=== PATIENT | male | born 1985 | race Caucasian/White ===

== ENCOUNTER 2019-05-28 00:47 | Emergency (ER) | payer OTHER, SELFPAY ==
[2019-05-28] VITALS (8 sets, daily range): BP systolic 127–143; BP diastolic 83–99; PULSE 78–100; RESP 15–25; TEMP 36.6; O2SAT 95–97; BMI 35.4
--- NOTE | 2019-05-28 01:11 | XRR_ITS ---
PROCEDURE INFORMATION: Exam: XR Chest, 1 View Exam date and time: 05/28/2019 1:55 AM Age: 34 years old Clinical indication: Other: Syncope; Chest pain; Type not specified TECHNIQUE: Imaging protocol: XR of the chest Views: 1 view. COMPARISON: CR Chest 2 views* [id number] 2017-02-20 04:56 FINDINGS: Lungs: Unremarkable. No consolidation. Pleural space: Unremarkable. No pleural effusion. No pneumothorax. Heart/Mediastinum: Unremarkable. No cardiomegaly. Bones/joints: Unremarkable. XR/XR chest 1V portable [id number] IMPRESSION: No acute findings.
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
--- NOTE | 2019-05-28 01:13 | ECG_ITS ---
Measurements Intervals [place] Rate: 86 P: 31 GA: 146 QRS: 49 QRSD: 92 T: 15 QT: 369 QTc: 444 SINUS RHYTHM NONSPECIFIC T-WAVE ABNORMALITY Compared to ECG 11/23/2014 08:46:08 T-wave abnormality now present Electronically Signed On 05-28-2019 13:28:28 PHP DEVELOPER by Lorie Farah M.D. [id number]
[2019-05-28 01:25] LABS: Basophils # 0.1 10^3/uL (0.0-0.1); Basophils % 0.6 %; Eosinophils # 0.4 10^3/uL (0.0-0.8); Eosinophils % 3.8 %; Hematocrit 45.4 % (42.0-52.0); Hemoglobin 15.2 g/dL (11.7-16.6); Lymphocytes # 3.2 10^3/uL (0.8-4.8); Lymphocytes % 29.6 %; Mean Corpuscular HGB Conc 33.5 g/dL (30.0-36.0); Mean Corpuscular Hemoglobin 28.1 pg (28.0-34.0); Mean Corpuscular Volume 84.1 fL (80-94); Mean Platelet Volume 10.4 fL (7.4-10.4); Monocytes # 1.1 10^3/uL (0.2-0.9); Monocytes % 10.3 %; Neutrophils % 55.3 %; Nucleated Red Blood Cells % 0 %; Platelet Count 453 10^3/cmm (130-400); Red Cell Distribution Width 12.1 % (12.1-15.1); White Blood Count 10.9 10^3/uL (4.0-10.0)
[2019-05-28 01:38] LABS: Alanine Aminotransferase 27 U/L (0-41); Albumin Level 4.4 g/dL (3.5-5.2); Alkaline Phosphatase 165 IU/L (40-130); Anion Gap 18.4 (5-19); Aspartate Amino Transferase 14 U/L (0-40); Blood Urea Nitrogen 20 mg/dL (6-20); Calcium 10.5 mg/Dl (8.6-10.0); Carbon Dioxide 23 mmol/L (22-29); Chloride 97 mmol/L (98-107); Creatine Phosphokinase 74 U/L (39-308); Globulin 4.2 g/dL (1.3-4.6); Glucose 140 mg/dL (74-109); Magnesium 2.2 mg/dL (1.7-2.3); Phosphorus 3.9 mg/dL (2.5-4.5); Potassium 3.4 mmol/L (3.5-5.1); Sodium 135 mmol/L (136-145); Total Bilirubin 0.3 mg/dL (0.15-1.2); Total Protein 8.6 g/dL (6.6-8.7)
[2019-05-28 01:41] LABS: Troponin(5th) Baseline 12 ng/mL (0-15)
[2019-05-28] MEDS: sodium chloride 0.9% 1,000 ML 999 ML IV (03:04)
[2019-05-28 03:07] LABS: Troponin 5 2HR 12.43 ng/mL (0-15)
[2019-05-28 03:08] LABS: Troponin 5 2HR Delta 0.43 ABS# (0-10)
[2019-05-28] MEDS: ketorolac 30 mg/mL INJ IVP (03:22)
== END 2019-05-28 04:04 | disposition home or self-care (01) ==
PROVIDERS: Emergency Provider Emergency Medicine; Family Provider Family Medicine; PCP Family Medicine
DX: R55 Syncope and collapse (principal); E86.0 Dehydration
CPT/HCPCS: 71045; 80053; 82550; 83735; 84100; 84484; 85025; 93005; 96360; 96374; 99282; J1885; J7030

== ENCOUNTER 2020-01-24 09:58 | Outpatient (CLI) | payer BC, SELFPAY ==
--- NOTE | 2020-01-24 10:11 | US_ITS ---
WS: [id number] Complete ABDOMINAL ULTRASOUND HISTORY: RUQ ABDOMINAL PAIN/FATTY LIVER DISEASE, HYPERTENSION AND HYPERGLYCEMIA. COMPARISON: 12/30/2011 Liver: 20.1 cm in length. Moderately enlarged liver with coarsened echotexture and attenuation which is increased. No mass or bile duct dilatation. Gallbladder: Prior cholecystectomy. Pancreas: Not visualized. CBD: 0.3 cm. Right kidney: 11.9 cm x 5.4 cm x 4.6 cm. No mass, cortical thickening or hydronephrosis. Left kidney: 11.3 cm x 3.9 cm x 5.6 cm. No mass, cortical thickening or hydronephrosis. Spleen: Normal size and echogenicity. Abdominal aorta and IVC are within normal limits. No ascites. US/US abdomen complete* [id number] IMPRESSION: 1. Status post cholecystectomy. 2. Moderate hepatomegaly and hepatic steatosis.
== END 2020-01-24 09:59 | disposition home or self-care (01) ==
LOC: RAD 10:03
PROVIDERS: PCP Family Medicine; Visit Provider Electrodiagnostic Medicine
DX: R10.11 Right upper quadrant pain (principal); K76.0 Fatty (change of) liver, not elsewhere classified; I10 Essential (primary) hypertension; R73.9 Hyperglycemia, unspecified; E78.00 Pure hypercholesterolemia, unspecified; R16.0 Hepatomegaly, not elsewhere classified
CPT/HCPCS: 76700

== ENCOUNTER 2020-09-25 22:26 | Emergency (ER) | payer BC, SELFPAY ==
[2020-09-25 22:27] VITALS: BP 148/96; PULSE 114; RESP 22; TEMP 37.1; O2SAT 95; BMI 36.1
--- NOTE | 2020-09-25 22:39 | XRR_ITS ---
PROCEDURE INFORMATION: Exam: XR Chest Exam date and time: 09/25/2020 10:41 PM Age: 35 years old Clinical indication: Shortness of breath; Additional info: SOB TECHNIQUE: Imaging protocol: XR of the chest. Views: 1 view. COMPARISON: CR XR chest 1V portable [id number] 05/28/2019 1:13 AM FINDINGS: Lungs: Unremarkable. No consolidation. Pleural spaces: Unremarkable. No pleural effusion. No pneumothorax. Heart/Mediastinum: Unremarkable. No cardiomegaly. Bones/joints: Unremarkable. XR/XR chest 1V portable [id number] IMPRESSION: No acute findings.
--- NOTE | 2020-09-25 22:39 | ECG_ITS ---
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 Measurements Intervals [place] Rate: 111 P: -4 NE: 124 QRS: 53 QRSD: 85 T: 34 QT: 346 QTc: 472 Interpretive Statements SINUS TACHYCARDIA NONSPECIFIC ST & T-WAVE ABNORMALITY Compared to ECG 05/28/2019 02:10:14 Sinus rhythm no longer present T-wave abnormality still present Electronically Signed On 09-26-2020 8:04:25 CDT by Jj Yang M.D. [id number]
[2020-09-25 22:43] VITALS: BP 142/96; PULSE 110; RESP 18; O2SAT 96
--- NOTE | 2020-09-25 22:54 | W.ED.SOB ---
HPI - SOB/Dyspnea General: Chief Complaint: Shortness of Breath/Dyspnea Stated Complaint: trouble breathing, light headed Time Seen by Provider: 09/25/20 22:38 Source: patient Mode of arrival: ambulatory Limitations: no limitations History of Present Illness: HPI Narrative: 35-year-old male states that over the last 2 days has been having shortness of breath. He states he just feels like he cannot get a deep breath then. Patient is tachycardic here but his pulse ox is normal. He denies any cough or fever. He has been on amoxicillin for 2 days for possible sinusitis. He denies any chest pain. Denies any worsening improving factors. Associated symptoms: Deny abdominal pain, chest pain, fever(s), nausea or vomiting Review of Systems Const: Denies: fever(s), chills, body aches or change in appetite Eyes: Denies: blurry vision or eye discomfort ENMT: Denies: throat pain or dental pain Card: Denies: chest pain Resp: Reports: dyspnea GI: Denies: abdominal pain, nausea, vomiting or diarrhea : Denies: dysuria Musc: Denies: neck pain or back pain Skin/Breast: Denies: rash Neuro: Denies: headache(s) Psych: Denies: depression Abbe/Lymph: Denies: easy bruising All/Imm: Denies: urticaria PFSH ED PFSH: Social History Smoking and tobacco status: never smoked Physical Exam Const: COMMON NORMALS: no acute distress, patient oriented x3 and healthy appearing HENMT: COMMON NORMALS: normocephalic and atraumatic HEAD & SCALP: normocephalic and atraumatic Eye: COMMON NORMALS: Equal, round and reactive pupils present and EOMs intact bilaterally PUPIL: Yes Equal, round and reactive pupils present Neck/C-Spine: COMMON NORMALS: full ROM and supple Chest: COMMONS NORMALS: normal inspection of the chest and normal palpation of entire chest wall Resp: COMMON NORMALS: normal respiratory effort, No retractions, No use of accessory muscles and clear to auscultation bilaterally AUSCULTATION: clear to auscultation bilaterally Cardio: COMMON NORMALS: regular rhythm and No murmurs present (Cardio) RATE: tachycardic RHYTHM: regular rhythm GI: COMMON NORMALS: Normal to inspection, nondistended, normoactive bowel sounds present, Soft to palpation, non-tender and no masses PALPATION: Yes Soft to palpation Extremity: COMMON NORMALS: normal to inspection and full ROM Neuro: COMMON NORMALS: patient oriented x3, moves all extremities and no focal motor deficits Psych: COMMON NORMALS: mental status grossly normal, Normal thought process present and cooperative THOUGHT PROCESS: Normal thought process present Skin: COMMON NORMALS: no rashes or lesions noted and no wounds GENERAL SKIN EXAM: no rashes or lesions noted Course Vital Signs: Vital signs: Vital Signs Temperature 98.7 F 09/25/20 22:27 Pulse Rate 110 H 09/25/20 23:14 Respiratory Rate 18 09/25/20 23:14 Blood Pressure 136/94 09/25/20 23:14 Pulse Oximetry 98 09/25/20 23:14 MDM - SOB/Dyspnea MDM Narrative: Medical decision making narrative: Patient presents here with dyspnea and CT scan shows bilateral pneumonia. We will start him on doxycycline and he is to take amoxicillin. Patient has no signs of cardiac cause or pulmonary bruising. He is stable for discharge and is to follow-up PCP and return if worsening. Lab Data: Labs: Lab Results 09/25/20 09/25/20 09/25/20 Range/Units 23:00 23:00 23:00 WBC 5.3 (4.0-10.0) 10^3/ uL RBC 5.52 H (4.1-5.3) 10^6/u L Hgb 16.3 (11.7-16.6) g/dL Hct 48.9 (42.0-52.0) % MCV 88.6 (80-94) fL MCH 29.5 (28.0-34.0) pg MCHC 33.3 (30.0-36.0) g/dL RDW 12.5 (12.1-15.1) % Plt Count 363 (130-400) 10^3/c mm MPV 9.7 (7.4-10.4) fL Neut % (Auto) 62.5 % Lymph % (Auto) 23.0 % [place] % (Auto) 11.4 % Eos % (Auto) 2.3 % Baso % (Auto) 0.6 % Neut # (Auto) 3.30 (1.8-7.7) 10^3/u L Lymph # (Auto) 1.2 (0.8-4.8) 10^3/u L [place] # (Auto) 0.6 (0.2-0.9) 10^3/u L Eos # (Auto) 0.1 (0.0-0.8) 10^3/u L Baso # (Auto) 0.0 (0.0-0.1) 10^3/u L Nucleated RBC % (a uto) 0 % Nucleated RBCs # 0.0 /100WBC PT 13.00 (12.1-14.9) SECO NDS INR 0.95 (0.8-1.2) D-Dimer 0.32 (0-0.59) ug/mIFE U Sodium 137 (136-145) mmol/L Potassium 4.4 (3.5-5.1) mmol/L Chloride 103 (98-107) mmol/L Carbon Dioxide 24 (22-29) mmol/L Anion Gap 14.4 (5-19) BUN 14 (6-20) mg/dL Creatinine 0.8 (0.7-1.2) mg/dL GFR Calculation 109.4 (90-130) mL/min Glucose 130 H (65-115) mg/dL Calculated Osmolal ity 286 (285-295) mOsm/k g Calcium 9.0 (8.5-10.5) mg/dL Total Bilirubin 0.2 (0.15-1.2) mg/dL AST 22 (0-40) U/L ALT 47 H (0-41) U/L Alkaline Phosphata se 140 H (40-130) IU/L Troponin T Baselin e (0-15) ng/L Total Protein 6.9 (6.6-8.7) g/dL Albumin 4.5 (3.5-5.2) g/dL Globulin 2.4 (1.3-4.6) g/dL 09/25/20 Range/Units 23:00 WBC (4.0-10.0) 10^3/ uL RBC (4.1-5.3) 10^6/u L Hgb (11.7-16.6) g/dL Hct (42.0-52.0) % MCV (80-94) fL MCH (28.0-34.0) pg MCHC (30.0-36.0) g/dL RDW (12.1-15.1) % Plt Count (130-400) 10^3/c mm MPV (7.4-10.4) fL Neut % (Auto) % Lymph % (Auto) % [place] % (Auto) % Eos % (Auto) % Baso % (Auto) % Neut # (Auto) (1.8-7.7) 10^3/u L Lymph # (Auto) (0.8-4.8) 10^3/u L [place] # (Auto) (0.2-0.9) 10^3/u L Eos # (Auto) (0.0-0.8) 10^3/u L Baso # (Auto) (0.0-0.1) 10^3/u L Nucleated RBC % (a uto) % Nucleated RBCs # /100WBC PT (12.1-14.9) SECO NDS INR (0.8-1.2) D-Dimer (0-0.59) ug/mIFE U Sodium (136-145) mmol/L Potassium (3.5-5.1) mmol/L Chloride (98-107) mmol/L Carbon Dioxide (22-29) mmol/L Anion Gap (5-19) BUN (6-20) mg/dL Creatinine (0.7-1.2) mg/dL GFR Calculation (90-130) mL/min Glucose (65-115) mg/dL Calculated Osmolal ity (285-295) mOsm/k g Calcium (8.5-10.5) mg/dL Total Bilirubin (0.15-1.2) mg/dL AST (0-40) U/L ALT (0-41) U/L Alkaline Phosphata se (40-130) IU/L Troponin T Baselin e 6 (0-15) ng/L Total Protein (6.6-8.7) g/dL Albumin (3.5-5.2) g/dL Globulin (1.3-4.6) g/dL Imaging Data^: CXR: Attestation: I personally reviewed and interpreted this imaging study as follows: My impression: no acute abnormality CT Chest: Attestation: I personally reviewed and interpreted this imaging study as follows: Radiologist's impression: [facility] [address] [place] [address] CT Scan Report Signed Patient: Ajay Ying Unit #: [id number] : 1985 Age/Sex: 35 / M ADM Date: 09/25/20 Loc: ER Room/Bed: Attending Dr: Ordering Provider/Ordering MD: Promise Irwin MD Date of Service: 09/25/20 Procedure(s): CT angio chest PE protcl [id number] Accession Number(s): [id number] Report Number: [id number] PROCEDURE INFORMATION: Exam: CTA Chest With Contrast Exam date and time: 09/25/2020 11:25 PM Age: 35 years old Clinical indication: Shortness of breath; Patient HX: SOB with diaphoresis. TECHNIQUE: Imaging protocol: Computed tomographic angiography of the chest with contrast. 3D rendering (Not supervised by radiologist): MIP and/or 3D reconstructed images were created by the technologist. Radiation optimization: All CT scans at this facility use at least one of these dose optimization techniques: automated exposure control; mA and/or kV adjustment per patient size (includes targeted exams where dose is matched to clinical indication); or iterative reconstruction. Contrast material: OMNI 350; Contrast volume: 95 ml; Contrast route: INTRAVENOUS (IV); COMPARISON: CR (CHEST, ) 09/25/2020 10:39 PM RADIATION DOSE METRICS: Total DLP (mGy-cm): 807.23 FINDINGS: Pulmonary arteries: No pulmonary embolism. Aorta: No aortic dissection or aneurysm. Lungs: There are hazy nodular infiltrates in both lungs. Pleural spaces: Unremarkable. No pneumothorax. No pleural effusion. Heart: Unremarkable. No cardiomegaly. No pericardial effusion. Lymph nodes: Unremarkable. No enlarged lymph nodes. Bones/joints: Unremarkable. No acute fracture. Soft tissues: Unremarkable. CT/CT angio chest PE protcl [id number] IMPRESSION: 1. No pulmonary embolism. 2. Hazy nodular opacities in both lungs consistent with bilateral pneumonia. EKG Data^: EKG 1: Attestation: I personally reviewed and interpreted this EKG as follows: EKG Interpretation Date: 09/25/20 EKG interpretation time: 22:58 Interpretation: sinus tach hr [address] or t wave abnormliaites qrs 85 qtc 412 Discharge Plan Discharge Patient Disposition: Home Clinical Impression: Community acquired pneumonia Qualifiers: Laterality: unspecified laterality Qualified Code(s): J18.9 - Pneumonia, unspecified organism Condition: Stable Prescriptions: New doxycycline hyclate 100 mg capsule 100 mg PO BID 10 Days Qty: 20 RF: 0 No Action Lexapro PO DAILY RF: 0 Discharge Orders: Discharge ED (Routine); Ordered 09/25/20 Ordered By: Promise Irwin Referrals: William Cole DO [Primary Care Provider] - 1-3 days Discharge Diet: Advance as tolerated Discharge Activity: Resume usual activity Patient Instructions: Pneumonia (ED) Coding Level of Care Code ED Integrated Logistics Operations Manager for [place] Fwd Exam Comprehensive
[2020-09-25 23:05] LABS: Basophils % 0.6 %; Eosinophils # 0.1 10^3/uL (0.0-0.8); Eosinophils % 2.3 %; Hematocrit 48.9 % (42.0-52.0); Hemoglobin 16.3 g/dL (11.7-16.6); Lymphocytes # 1.2 10^3/uL (0.8-4.8); Mean Corpuscular HGB Conc 33.3 g/dL (30.0-36.0); Mean Corpuscular Hemoglobin 29.5 pg (28.0-34.0); Mean Corpuscular Volume 88.6 fL (80-94); Mean Platelet Volume 9.7 fL (7.4-10.4); Monocytes # 0.6 10^3/uL (0.2-0.9); Monocytes % 11.4 %; Neutrophils % 62.5 %; Nucleated Red Blood Cells % 0 %; Platelet Count 363 10^3/cmm (130-400); Red Blood Count 5.52 10^6/uL (4.1-5.3); Red Cell Distribution Width 12.5 % (12.1-15.1); White Blood Count 5.3 10^3/uL (4.0-10.0)
[2020-09-25 23:14] VITALS: BP 136/94; PULSE 110; RESP 18; O2SAT 98
[2020-09-25 23:16] LABS: INR 0.95 (0.8-1.2)
[2020-09-25 23:19] LABS: D Dimer 0.32 ug/mIFEU (0-0.59)
--- NOTE | 2020-09-25 23:23 | CTR_ITS ---
PROCEDURE INFORMATION: Exam: CTA Chest With Contrast Exam date and time: 09/25/2020 11:25 PM Age: 35 years old Clinical indication: Shortness of breath; Patient HX: SOB with diaphoresis. TECHNIQUE: Imaging protocol: Computed tomographic angiography of the chest with contrast. 3D rendering (Not supervised by radiologist): MIP and/or 3D reconstructed images were created by the technologist. Radiation optimization: All CT scans at this facility use at least one of these dose optimization techniques: automated exposure control; mA and/or kV adjustment per patient size (includes targeted exams where dose is matched to clinical indication); or iterative reconstruction. Contrast material: OMNI 350; Contrast volume: 95 ml; Contrast route: INTRAVENOUS (IV); COMPARISON: CR (CHEST, ) 09/25/2020 10:39 PM RADIATION DOSE METRICS: Total DLP (mGy-cm): 807.23 FINDINGS: Pulmonary arteries: No pulmonary embolism. Aorta: No aortic dissection or aneurysm. Lungs: There are hazy nodular infiltrates in both lungs. Pleural spaces: Unremarkable. No pneumothorax. No pleural effusion. Heart: Unremarkable. No cardiomegaly. No pericardial effusion. Lymph nodes: Unremarkable. No enlarged lymph nodes. Bones/joints: Unremarkable. No acute fracture. Soft tissues: Unremarkable. CT/CT angio chest PE protcl [id number] IMPRESSION: 1. No pulmonary embolism. 2. Hazy nodular opacities in both lungs consistent with bilateral pneumonia. Radiation Dose CTDIVOL = (mGy): DLP = 807.23 (mGy-cm)
[2020-09-25 23:27] LABS: Troponin(5th) Baseline 6 ng/L (0-15)
[2020-09-25 23:29] LABS: Alanine Aminotransferase 47 U/L (0-41); Albumin Level 4.5 g/dL (3.5-5.2); Alkaline Phosphatase 140 IU/L (40-130); Aspartate Amino Transferase 22 U/L (0-40); Blood Urea Nitrogen 14 mg/dL (6-20); Carbon Dioxide 24 mmol/L (22-29); Chloride 103 mmol/L (98-107); Globulin 2.4 g/dL (1.3-4.6); Glomerular Filtration Rate 109.4 mL/min (90-130); Glucose 130 mg/dL (65-115); Osmolality Calculated 286 mOsm/kg (285-295); Sodium 137 mmol/L (136-145); Total Bilirubin 0.2 mg/dL (0.15-1.2); Total Protein 6.9 g/dL (6.6-8.7)
[2020-09-25 23:31] LABS: Anion Gap 14.4 (5-19); Potassium 4.4 mmol/L (3.5-5.1)
[2020-09-25] MEDS: iohexol 350 mg/mL 100 mL Btl IV (23:36)
[2020-09-26] VITALS: BP 134/92; PULSE 105; RESP 18; O2SAT 95
== END 2020-09-26 | disposition home or self-care (01) ==
PROVIDERS: Emergency Provider Emergency Medicine; PCP Family Medicine
DX: J18.9 Pneumonia, unspecified organism (principal)
CPT/HCPCS: 71045; 71275; 80053; 84484; 85025; 85378; 85610; 93005; 99283; Q9967

== ENCOUNTER 2021-09-05 08:54 | Outpatient (CLI) | payer BC, SELFPAY ==
--- NOTE | 2021-09-05 09:00 | US_ITS ---
WS: [id number] TESTICULAR ULTRASOUND HISTORY: R TESTICULAR PAIN COMPARISON: None available. TECHNIQUE: Real-time and color Doppler imaging or utilized to perform a testicular ultrasound. Right testicle: 4.1 cm x 2.4 cm x 1.9 cm. Normal size and echogenicity. No mass or torsion. Normal color Doppler is present throughout. Systolic and diastolic velocities are both present. Small mildly heterogeneous hydrocele. Prominent varicocele present. Lobulated cystic structure adjace nt to the epididymis. Measures 6 mm. Right epididymis: Normal epididymis with no increased vascularity. Left testicle: 3.4 cm x 3.0 cm x 2.3 cm. Normal size and echogenicity. No mass or torsion. Normal color Doppler is present throughout. Systolic and diastolic velocities are both present. No significant hydrocele. Left epididymis: Normal epididymis with no increased vascularity. US/US scrotum [id number] IMPRESSION: 1. No testicular mass or torsion. 2. Mild RIGHT varicocele. 3. Very small but complex RIGHT hydrocele.
--- NOTE | 2021-09-05 09:00 | US_ITS ---
WS: [id number] URINARY BLADDER ULTRASOUND HISTORY: RIGHT TESTICULAR PAIN COMPARISON: None available. Urinary bladder is well distended. No intraluminal filling defect. No free fluid adjacent to the urin sandrine bladder. Prostate gland is slightly enlarged encroaching into the base of the urinary bladder. Pr ostate measures 3.7 x 3.4 x 3.4 cm. US/US pelvic limited [id number] IMPRESSION: 1. Normal urinary bladder. 2. Very mild prostate gland enlargement and heterogeneity.
== END 2021-09-05 08:55 | disposition home or self-care (01) ==
LOC: RAD 08:55
PROVIDERS: PCP Family Medicine; Visit Provider Family Medicine
DX: N50.811 Right testicular pain (principal); I86.1 Scrotal varices; N43.3 Hydrocele, unspecified
CPT/HCPCS: 76857; 76870

== ENCOUNTER → 2022-07-30 07:46 | Outpatient (BNVA) | payer BC, SELFPAY | PROVIDERS: PCP Family Medicine; Visit Provider Family Medicine | DX: Z00.00 Encounter for general adult medical examination without abnormal findings (principal); R53.83 Other fatigue; R68.82 Decreased libido; K64.9 Unspecified hemorrhoids | CPT/HCPCS: 80053; 80061; 82607; 84402; 84403; 84443 ==

== ENCOUNTER → 2022-08-05 08:06 | Outpatient (BNVA) | payer BC, SELFPAY | PROVIDERS: PCP Family Medicine; Visit Provider Family Medicine | DX: R53.83 Other fatigue (principal); R68.82 Decreased libido | CPT/HCPCS: 84403 ==

== ENCOUNTER → 2022-08-13 08:21 | Outpatient (BNVA) | payer BC, SELFPAY | PROVIDERS: PCP Family Medicine; Visit Provider Family Medicine | DX: Z00.00 Encounter for general adult medical examination without abnormal findings (principal); R68.82 Decreased libido; R53.83 Other fatigue | CPT/HCPCS: 84403 ==

== ENCOUNTER → 2022-08-19 15:59 | Outpatient (BNVA) | payer BC, SELFPAY | PROVIDERS: PCP Family Medicine; Visit Provider Family Medicine | DX: E29.1 Testicular hypofunction (principal) | CPT/HCPCS: 83001; 83002 ==

== ENCOUNTER → 2022-09-30 15:48 | Outpatient (BNVA) | payer BC, SELFPAY | PROVIDERS: PCP Family Medicine; Visit Provider Family Medicine | DX: E29.1 Testicular hypofunction (principal) | CPT/HCPCS: 84403; 85025 ==

== ENCOUNTER → 2022-10-22 10:01 | Outpatient (BNVA) | payer BC, SELFPAY | PROVIDERS: PCP Family Medicine; Visit Provider Family Medicine | DX: Z00.00 Encounter for general adult medical examination without abnormal findings (principal); E29.1 Testicular hypofunction | CPT/HCPCS: 84403 ==

== ENCOUNTER → 2023-05-28 14:45 | Outpatient (BNVA) | payer BC, SELFPAY | PROVIDERS: PCP Family Medicine; Visit Provider Family Medicine | DX: Z13.6 Encounter for screening for cardiovascular disorders (principal); E29.1 Testicular hypofunction; F41.9 Anxiety disorder, unspecified; Z00.00 Encounter for general adult medical examination without abnormal findings; R79.89 Other specified abnormal findings of blood chemistry | CPT/HCPCS: 80053; 80061; 82040; 84270; 84403 ==

== ENCOUNTER → 2023-12-07 14:54 | Outpatient (BNVA) | payer BC, SELFPAY | PROVIDERS: PCP Family Medicine; Visit Provider Family Medicine | DX: R79.89 Other specified abnormal findings of blood chemistry (principal); R68.82 Decreased libido; E29.1 Testicular hypofunction; Z71.84 Encounter for health counseling related to travel | CPT/HCPCS: 82040; 84270; 84403; 85025 ==

== ENCOUNTER → 2024-05-02 08:29 | Outpatient (BNVA) | payer BC, SELFPAY | PROVIDERS: PCP Family Medicine; Visit Provider Family Medicine | DX: E29.1 Testicular hypofunction (principal); F41.9 Anxiety disorder, unspecified; R68.82 Decreased libido; G47.33 Obstructive sleep apnea (adult) (pediatric); R79.89 Other specified abnormal findings of blood chemistry | CPT/HCPCS: 80053; 82040; 84270; 84403; 85025 ==

== ENCOUNTER → 2025-01-23 12:05 | Outpatient (BNVA) | payer BC, SELFPAY | PROVIDERS: PCP Family Medicine; Visit Provider Emergency Medicine | DX: R09.89 Other specified symptoms and signs involving the circulatory and respiratory systems (principal) | CPT/HCPCS: 87426 ==

== ENCOUNTER 2025-03-31 12:08 | Outpatient (CLI) | payer BC, SELFPAY ==
[2025-03-31 13:04] LABS: Hematocrit 45.5 % (37-53); Hemoglobin 15.60 g/dL (11.27-16.99); Mean Corpuscular HGB Conc 34.3 g/dL (30-55); Mean Corpuscular Hemoglobin 29.2 pg (27-33); Mean Corpuscular Volume 85.0 fl (82-101); Nucleated Red Blood Cells % 0 %; Platelet Count 326 10^3/cmm (157-399); Red Blood Count 5.35 10^6/uL (3.85-5.65); White Blood Count 8.10 10^3/uL (3.29-11.43)
[2025-03-31 13:44] LABS: Alanine Aminotransferase 30 U/L (0-41); Albumin Level 4.2 g/dL (3.5-5.2); Alkaline Phosphatase 118 U/L (40-130); Aspartate Amino Transferase 18 U/L (0-40); Blood Urea Nitrogen 15 mg/dL (6-20); Calcium 9.3 mg/dL (8.5-10.5); Carbon Dioxide 27 mmol/L (22-29); Chloride 102 mmol/L (98-107); Cholesterol 190 mg/dL (0-200); Globulin 3.2 g/dL (1.3-4.6); Glucose 112 mg/dL (65-115); HDL Cholesterol 34 mg/dL (60-100); Osmolality Calculated 288 mOsm/kg (285-295); Sodium 138 mmol/L (136-145); Thyroid Stimulating Hormone 1.18 uIU/mL (0.27-4.20); Total Protein 7.4 g/dL (6.6-8.7); Triglycerides 111 mg/dL (0-150); VLDL Cholestrol Calculation 22 mg/dL (0-30); Vitamin B12 382 pg/mL (232-1245)
[2025-03-31 13:45] LABS: Anion Gap 12.9 (5-19); Potassium 3.9 mmol/L (3.5-5.1)
[2025-04-01 05:30] LABS: Testosterone Total Males IA 318 ng/dL (250-827)
[2025-04-01 06:10] LABS: Albumin 4.3 g/dL (3.6-5.1)
== END 2025-03-31 12:09 | disposition home or self-care (01) ==
PROVIDERS: PCP Family Medicine; Visit Provider Family Medicine
DX: E03.9 Hypothyroidism, unspecified (principal); E34.9 Endocrine disorder, unspecified; E29.1 Testicular hypofunction; G47.33 Obstructive sleep apnea (adult) (pediatric); F41.9 Anxiety disorder, unspecified; R79.89 Other specified abnormal findings of blood chemistry
CPT/HCPCS: 36415; 80053; 80061; 82040; 82607; 84270; 84403; 84443; 85025